=== PATIENT | female | born 1960 | race Caucasian/White ===

== ENCOUNTER 2018-12-06 06:07 | Observation (INO) ==
[2018-12-06] MEDS ORDERED: Pantoprazole 40 MG VIAL IVP ONE (06:24)
[2018-12-06] MEDS ORDERED: Ondansetron 4 MG/2 ML VIAL IVP ONE (06:24)
[2018-12-06] MEDS ORDERED: 0.9 % Sodium Chloride 500 ML IVC ONE (06:24)
[2018-12-06] MEDS ORDERED: Aspirin 81 MG TAB.CHEW PO ONE (06:24)
[2018-12-06] MEDS ORDERED: GI Cocktail 40 ML EACH PO ONE ×2 (06:24→11:22)
[2018-12-06 06:40] LABS: Basophils # 0.1 K/mcL (0.0-0.2); Eosinophils # 0.3 K/mcL (0.0-0.6); Eosinophils % 4.5 %; Hemoglobin 13.3 g/dL (11.5-15.4); Immature Granulocytes % 0.1 % (0-4); Lymphocytes # 1.6 K/mcL (0.6-4.6); Lymphocytes % 23.2 %; Mean Corpuscular HGB Conc 32.4 g/dL (31.6-35.5); Mean Corpuscular Hemoglobin 29.7 pg (28.0-33.3); Mean Corpuscular Volume 91.5 fL (83.0-100.0); Mean Platelet Volume 9.5 fL (9.4-12.4); Monocytes # 0.5 K/mcL (0.0-1.3); Monocytes % 7.9 %; Neutrophils # 4.3 K/mcL (1.6-8.9); Platelet Count 353 K/mcL (140-400); Red Blood Count 4.48 M/mcL (3.82-4.97); Red Cell Distribution Width 13.8 % (11.5-14.5); Segmented Neutrophils % 63.3 %
[2018-12-06 06:48] LABS: Prothrombin Time 10.7 Seconds (9.4-12.1)
--- NOTE | 2018-12-06 06:48 | Emergency Department Note ---
Disposition Clinical Impression: Chest pain Disposition: Admitted As Inpatient Condition: Good General Adult HPI - General Chief complaint: ED Chest Pain Stated complaint: Chest Pain Time Seen by Provider: 12/06/18 06:23 Source: patient, family Limitations: no limitations - History of Present Illness Pain Scale: 10 - Related Data Home Medications Medication Instructions Recorded Confirmed Citalopram [CeleXA] 40 mg PO QAM 04/29/15 04/21/16 LORazepam [Ativan] 1 mg PO TID 04/29/15 04/21/16 Metoprolol [Lopressor] 12.5 mg PO BID 04/29/15 12/06/18 Simvastatin [Zocor] 40 mg PO HS 04/29/15 12/06/18 Lisinopril/Hydrochlorothiazide 1 each PO DAILY 06/27/15 04/21/16 [Zestoretic 10-12.5 mg Tablet] Ranitidine HCl [Zantac] 150 mg PO BID PRN 06/27/15 12/06/18 Citalopram [CeleXA] 20 mg PO HS 04/21/16 04/21/16 Ergocalciferol (VITAMIN D2) 50,000 unit PO QWEEK 04/21/16 04/21/16 [Vitamin D2 (50,000 UNIT)] Allergies Allergy/AdvReac Type Severity Reaction Status Date / Time dicyclomine AdvReac Severe Vomiting Verified 12/06/18 06:13 Past Medical History - Past Medical History Medical history: Reports: GERD, hypertension, renal disease, other Surgical history: Reports: cholecystectomy, orthopedic, other, other Psychiatric history: Reports: anxiety - Social History Smoking Status: Never smoker Smokeless Tobacco Status: No Alcohol use: Reports: none Drug use: Reports: none Physical Exam - General Limitations: no limitations General appearance: alert Course Vital Signs Temperature 98.5 F 12/06/18 06:13 Pulse Rate 79 12/06/18 06:13 Respiratory Rate 20 12/06/18 06:13 Blood Pressure 145/80 12/06/18 06:13 O2 Sat by Pulse Oximetry 97 12/06/18 06:13 Temperature 98.2 F 12/06/18 10:42 Pulse Rate 59 12/06/18 10:42 Respiratory Rate 16 12/06/18 10:42 Blood Pressure 115/75 12/06/18 10:42 O2 Sat by Pulse Oximetry 94 12/06/18 10:42 Oxygen Delivery Oxygen Delivery Room Air Medical Decision Making - Lab Data Result diagrams: 12/06/18 06:22 12/06/18 06:22 Lab Results 12/06/18 12/06/18 12/06/18 Range/Units 06:22 06:22 06:22 WBC 6.9 (4.3-11.1) K/mcL RBC 4.48 (3.82-4.97) M/mcL Hgb 13.3 (11.5-15.4) g/dL Hct 41.0 (35.3-44.9) % MCV 91.5 (83.0-100.0) fL MCH 29.7 (28.0-33.3) pg MCHC 32.4 (31.6-35.5) g/dL RDW 13.8 (11.5-14.5) % Plt Count 353 (140-400) K/mcL MPV 9.5 (9.4-12.4) fL Immature Gran % 0.1 (0-4) % Seg Neutrophils % 63.3 % Lymphocytes % 23.2 % Monocytes % 7.9 % Eosinophils % 4.5 % Basophils % 1.0 % Neutrophils # 4.3 (1.6-8.9) K/mcL Lymphocytes # 1.6 (0.6-4.6) K/mcL Monocytes # 0.5 (0.0-1.3) K/mcL Eosinophils # 0.3 (0.0-0.6) K/mcL Basophils # 0.1 (0.0-0.2) K/mcL PT 10.7 (9.4-12.1) Seconds INR 1.0 APTT 29.7 (26.0-36.0) Seconds Sodium 141 (136-145) mEq/L Potassium 3.9 (3.5-5.1) mEq/L Chloride 107 (98-107) mEq/L Carbon Dioxide 23 (23-29) mEq/L BUN 13 (6-20) mg/dL Creatinine 1.10 (0.60-1.20) mg/dL Est GFR ( Amer) > 60 (> 60) Est GFR (Non-Af Amer) 51 L (> 60) BUN/Creatinine Ratio 12 (6-26) Glucose 104 (70-105) mg/dL Calculated Osmolality 292 (280-300) Calcium 9.6 (8.6-10.3) mg/dL Total Bilirubin 1.1 H (0.3-1.0) mg/dL Direct Bilirubin 0.1 (0.0-0.2) mg/dL Indirect Bilirubin 1.0 (0.0-1.2) mg/dL AST 19 (13-39) Units/L ALT 16 (7-52) Units/L Alkaline Phosphatase 78 (34-104) Units/L Troponin I < 0.03 (< 0.04) ng/mL Serum Total Protein 7.4 (6.4-8.9) g/dL Albumin 4.4 (3.5-5.7) g/dL Globulin 3.0 (2.4-3.5) g/dL Albumin/Globulin Ratio 1.5 (1.1-2.2) Lipase 22 (11-82) Units/L Attestation Statement - Attestation Attestation: For this encounter, I have reviewed the DRUG PURCHASER or PA documentation, treatment plan, and medical decision making; and I have had face to face time with this patient.
[2018-12-06] MEDS ORDERED: Nitroglycerin 0.4 MG TAB.SUBL SL PRN (06:49)
[2018-12-06 06:51] LABS: Activated Partial Thrombo Time 29.7 Seconds (26.0-36.0)
[2018-12-06 07:05] LABS: Alanine Aminotransferase 16 Units/L (7-52); Albumin 4.4 g/dL (3.5-5.7); Albumin/Globulin Ratio 1.5 (1.1-2.2); Alkaline Phosphatase 78 Units/L (34-104); Aspartate Amino Transferase 19 Units/L (13-39); BUN/Creatinine Ratio 12 (6-26); Bilirubin,Direct 0.1 mg/dL (0.0-0.2); Bilirubin,Total 1.1 mg/dL (0.3-1.0); Blood Urea Nitrogen 13 mg/dL (6-20); Calcium 9.6 mg/dL (8.6-10.3); Carbon Dioxide 23 mEq/L (23-29); Chloride 107 mEq/L (98-107); Glucose 104 mg/dL (70-105); Lipase 22 Units/L (11-82); Osmolality,Calculated 292 (280-300); Potassium 3.9 mEq/L (3.5-5.1); Sodium 141 mEq/L (136-145); Total Protein 7.4 g/dL (6.4-8.9); Troponin I < 0.03 ng/mL (< 0.04); eGFR For Non-African Americans 51 (> 60)
--- NOTE | 2018-12-06 07:22 | Emergency Department Note ---
Disposition Clinical Impression: Chest pain Qualifiers: Chest pain type: precordial pain Qualified Code(s): R07.2 - Precordial pain Disposition: Admitted As Inpatient Condition: Good Forms: ED Satisfaction Letter Chest Pain HPI - General Chief Complaint: ED Chest Pain Stated Complaint: Chest Pain Time Seen by Provider: 12/06/18 06:23 Source: patient, family Mode of arrival: private vehicle Limitations: no limitations Vital Signs Reviewed: Yes Nursing Notes Reviewed: Yes - History of Present Illness Pt complaint: chest pain Onset (ago): hour(s) Duration: constant Onset: during rest Pain Location: substernal Severity: severe Severity scale (1-10): 10 Quality: other (burning) Pain Radiation: jaw/teeth Improves with: nothing Worsens with: nothing Context: other (Hx of similar 2 weeks ago. Saw PCP and was told to go to ER if symptoms returned. ) Associated symptoms: Denies: nausea, vomiting, diaphoresis, dyspnea, sense of impending doom, syncope, palpitations, fever, cough, leg swelling Treatments prior to arrival chest pain: other (Zantac 150mg) - Related Data On Oral Contraceptives: No Home Medications Medication Instructions Recorded Confirmed Citalopram [CeleXA] 40 mg PO QAM 04/29/15 04/21/16 LORazepam [Ativan] 1 mg PO TID 04/29/15 04/21/16 Metoprolol [Lopressor] 12.5 mg PO BID 04/29/15 04/21/16 Simvastatin [Zocor] 40 mg PO HS 04/29/15 04/21/16 Lisinopril/Hydrochlorothiazide 1 each PO DAILY 06/27/15 04/21/16 [Zestoretic 10-12.5 mg Tablet] Ranitidine HCl [Zantac] 150 mg PO BID PRN 06/27/15 04/21/16 Citalopram [CeleXA] 20 mg PO HS 04/21/16 04/21/16 Ergocalciferol (VITAMIN D2) 50,000 unit PO QWEEK 04/21/16 04/21/16 [Vitamin D2 (50,000 UNIT)] Allergies Allergy/AdvReac Type Severity Reaction Status Date / Time dicyclomine AdvReac Severe Vomiting Verified 12/06/18 06:13 All systems ED: reviewed and negative except as stated. Review of Systems: As Per HPI Constitutional: Denies: fever, chills, weakness, weight change, night sweats Eyes: Denies: eye pain, eye discharge, vision change ENT ED: Denies: ear pain, throat pain, congestion, dysphagia Cardiovascular: Reports: chest pain. Denies: palpitations, dyspnea on exertion, orthopnea, edema, syncope Respiratory: Denies: cough, dyspnea, wheezes, hemoptysis, stridor, sputum production Gastrointestinal: Denies: abdominal pain, nausea, vomiting, diarrhea, constipation Genitourinary: Denies: dysuria Musculoskeletal: Denies: back pain, neck pain, joint swelling, arthralgia Integumentary: Denies: rash Neurological: Denies: headache, weakness Endocrine: Denies: fatigue Hematological/Lymphatic: Denies: easy bleeding, easy bruising Chest Pain PMH - Past Medical History Medical history: Reports: GERD, hypertension, renal disease, other Surgical history: Reports: cholecystectomy, orthopedic, other, other Psychiatric history: Reports: anxiety Prior Cardiac Testing/Procedures: Cardiac Angiogram (4 years ago - 20% occlusion of 3 vessels) - Social History Smoking Status: Never smoker Alcohol use: Reports: none Drug use: Reports: none Physical Exam - General Limitations: no limitations General appearance: alert, in no apparent distress - Head Head exam: atraumatic, normocephalic, normal inspection - Eye Eye exam: Present: normal appearance, PERRL. Absent: scleral icterus, conjunctival injection, periorbital swelling - ENT ENT exam: mucous membranes moist - Neck Neck exam: Present: normal inspection, full ROM, trachea midline. Absent: tenderness, meningismus, lymphadenopathy - Chest Chest inspection: Present: normal inspection. Absent: tenderness - Respiratory Respiratory exam: Present: normal lung sounds bilaterally. Absent: respiratory distress, wheezes, stridor - Cardiovascular Cardiovascular exam: Present: regular rate, normal rhythm, normal heart sounds - Abdominal Exam Abdominal exam: Present: soft. Absent: tenderness, distention, guarding, rebound, mass, pulsatile mass - Extremities Exam Extremities exam: Present: normal inspection, full ROM, normal capillary refill. Absent: pedal edema, joint swelling, calf tenderness - Expanded Lower Extremity Exam Gait: observed and normal - Back Exam Back exam: Present: normal inspection - Neurological Exam Neurological exam: Present: alert, oriented X3, CN II-XII intact, normal gait - Psychiatric Psychiatric exam: Present: normal affect, anxious - Skin Skin exam: Present: warm, dry, intact, normal color Course Course Narrative: Patient to ED with for evaluation of epigastric chest pain that radiates into the neck and jaw. It began at 5 AM right after she woke up. Nothing makes it better or worse. She had similar pain two weeks ago and saw her PCP for it. He was concerned that it may be heart related and told her that if it happened again, she should come to the ER. She denies dizziness, vertigo, syncope, shortness of breath or dyspnea on exertion, cough or hemoptysis, fever, chills, nausea, vomiting or diaphoresis. On exam she appears anxious and uncomfortable but nontoxic. She is able to speak in complete sentences is polite and conversant. She is able to laugh at my jokes. She becomes tearful when she talks about her family history of coronary artery disease; specifically her father had a CABG in his 50s. She notes that she also has a history of hiatal hernia which was repaired about a decade ago however she was recently told that it has returned. She took two Zantac this AM with no relief. EKG, labs, CXR and meds ordered. EKG shows NSR with Right BBB - unchanged compared to previous. CXR normal per Radiologist. Labs essentially unremarkable. Patient had a cath 4 years ago that showed "20% occlusion in several vessels" per patient report. I am unable to find the report at this time. Patient states it was done here by a female and she follows with Dr. Horn. Patient's HEART score is 4. She has HTN, Fam Hx of CAD at young age, and hx of PCI with 20% occlusion. Will admit for R/O. Case discussed with Dr. Burdick. She has had face to face time with the patient and agrees with the assessment and plan. Vital Signs Temperature 98.5 F 12/06/18 06:13 Pulse Rate 79 12/06/18 06:13 Respiratory Rate 20 12/06/18 06:13 Blood Pressure 145/80 12/06/18 06:13 O2 Sat by Pulse Oximetry 97 12/06/18 06:13 Temperature 98.5 F 12/06/18 06:13 Pulse Rate 66 12/06/18 07:24 Respiratory Rate 13 12/06/18 07:24 Blood Pressure 109/73 12/06/18 07:24 O2 Sat by Pulse Oximetry 94 12/06/18 07:24 Oxygen Delivery Oxygen Delivery Room Air Chest Pain - Lab Data Result diagrams: 12/06/18 06:22 12/06/18 06:22 Lab Results 12/06/18 12/06/18 12/06/18 Range/Units 06:22 06:22 06:22 WBC 6.9 (4.3-11.1) K/mcL RBC 4.48 (3.82-4.97) M/mcL Hgb 13.3 (11.5-15.4) g/dL Hct 41.0 (35.3-44.9) % MCV 91.5 (83.0-100.0) fL MCH 29.7 (28.0-33.3) pg MCHC 32.4 (31.6-35.5) g/dL RDW 13.8 (11.5-14.5) % Plt Count 353 (140-400) K/mcL MPV 9.5 (9.4-12.4) fL Immature Gran % 0.1 (0-4) % Seg Neutrophils % 63.3 % Lymphocytes % 23.2 % Monocytes % 7.9 % Eosinophils % 4.5 % Basophils % 1.0 % Neutrophils # 4.3 (1.6-8.9) K/mcL Lymphocytes # 1.6 (0.6-4.6) K/mcL Monocytes # 0.5 (0.0-1.3) K/mcL Eosinophils # 0.3 (0.0-0.6) K/mcL Basophils # 0.1 (0.0-0.2) K/mcL PT 10.7 (9.4-12.1) Seconds INR 1.0 APTT 29.7 (26.0-36.0) Seconds Sodium 141 (136-145) mEq/L Potassium 3.9 (3.5-5.1) mEq/L Chloride 107 (98-107) mEq/L Carbon Dioxide 23 (23-29) mEq/L BUN 13 (6-20) mg/dL Creatinine 1.10 (0.60-1.20) mg/dL Est GFR ( Amer) > 60 (> 60) Est GFR (Non-Af Amer) 51 L (> 60) BUN/Creatinine Ratio 12 (6-26) Glucose 104 (70-105) mg/dL Calculated Osmolality 292 (280-300) Calcium 9.6 (8.6-10.3) mg/dL Total Bilirubin 1.1 H (0.3-1.0) mg/dL Direct Bilirubin 0.1 (0.0-0.2) mg/dL Indirect Bilirubin 1.0 (0.0-1.2) mg/dL AST 19 (13-39) Units/L ALT 16 (7-52) Units/L Alkaline Phosphatase 78 (34-104) Units/L Troponin I < 0.03 (< 0.04) ng/mL Serum Total Protein 7.4 (6.4-8.9) g/dL Albumin 4.4 (3.5-5.7) g/dL Globulin 3.0 (2.4-3.5) g/dL Albumin/Globulin Ratio 1.5 (1.1-2.2) Lipase 22 (11-82) Units/L Heart Score - Score History: Moderately Suspicious EKG: Normal Age: 45-65 Risk Factors: Equal/Greater than 3 risk factor or history of atherosclerotic disease Troponin: Less than normal limit HEART Score Total: 4
--- NOTE | 2018-12-06 07:23 | Emergency Department Note ---
Disposition Clinical Impression: Chest pain Disposition: Admitted As Inpatient Condition: Good General Adult HPI - General Chief complaint: ED Chest Pain Stated complaint: Chest Pain Time Seen by Provider: 12/06/18 06:23 Source: patient, family Limitations: no limitations - History of Present Illness Pain Scale: 10 - Related Data Home Medications Medication Instructions Recorded Confirmed Citalopram [CeleXA] 40 mg PO QAM 04/29/15 04/21/16 LORazepam [Ativan] 1 mg PO TID 04/29/15 04/21/16 Metoprolol [Lopressor] 12.5 mg PO BID 04/29/15 12/06/18 Simvastatin [Zocor] 40 mg PO HS 04/29/15 12/06/18 Lisinopril/Hydrochlorothiazide 1 each PO DAILY 06/27/15 04/21/16 [Zestoretic 10-12.5 mg Tablet] Ranitidine HCl [Zantac] 150 mg PO BID PRN 06/27/15 12/06/18 Citalopram [CeleXA] 20 mg PO HS 04/21/16 04/21/16 Ergocalciferol (VITAMIN D2) 50,000 unit PO QWEEK 04/21/16 04/21/16 [Vitamin D2 (50,000 UNIT)] Allergies Allergy/AdvReac Type Severity Reaction Status Date / Time dicyclomine AdvReac Severe Vomiting Verified 12/06/18 06:13 Past Medical History - Past Medical History Medical history: Reports: GERD, hypertension, renal disease, other Surgical history: Reports: cholecystectomy, orthopedic, other, other Psychiatric history: Reports: anxiety - Social History Smoking Status: Never smoker Smokeless Tobacco Status: No Alcohol use: Reports: none Drug use: Reports: none Physical Exam - General Limitations: no limitations General appearance: alert Course Vital Signs Temperature 98.5 F 12/06/18 06:13 Pulse Rate 79 12/06/18 06:13 Respiratory Rate 20 12/06/18 06:13 Blood Pressure 145/80 12/06/18 06:13 O2 Sat by Pulse Oximetry 97 12/06/18 06:13 Temperature 98.2 F 12/06/18 10:42 Pulse Rate 59 12/06/18 10:42 Respiratory Rate 16 12/06/18 10:42 Blood Pressure 115/75 12/06/18 10:42 O2 Sat by Pulse Oximetry 94 12/06/18 10:42 Oxygen Delivery Oxygen Delivery Room Air Medical Decision Making - Lab Data Result diagrams: 12/06/18 06:22 12/06/18 06:22 Lab Results 12/06/18 12/06/18 12/06/18 Range/Units 06:22 06:22 06:22 WBC 6.9 (4.3-11.1) K/mcL RBC 4.48 (3.82-4.97) M/mcL Hgb 13.3 (11.5-15.4) g/dL Hct 41.0 (35.3-44.9) % MCV 91.5 (83.0-100.0) fL MCH 29.7 (28.0-33.3) pg MCHC 32.4 (31.6-35.5) g/dL RDW 13.8 (11.5-14.5) % Plt Count 353 (140-400) K/mcL MPV 9.5 (9.4-12.4) fL Immature Gran % 0.1 (0-4) % Seg Neutrophils % 63.3 % Lymphocytes % 23.2 % Monocytes % 7.9 % Eosinophils % 4.5 % Basophils % 1.0 % Neutrophils # 4.3 (1.6-8.9) K/mcL Lymphocytes # 1.6 (0.6-4.6) K/mcL Monocytes # 0.5 (0.0-1.3) K/mcL Eosinophils # 0.3 (0.0-0.6) K/mcL Basophils # 0.1 (0.0-0.2) K/mcL PT 10.7 (9.4-12.1) Seconds INR 1.0 APTT 29.7 (26.0-36.0) Seconds Sodium 141 (136-145) mEq/L Potassium 3.9 (3.5-5.1) mEq/L Chloride 107 (98-107) mEq/L Carbon Dioxide 23 (23-29) mEq/L BUN 13 (6-20) mg/dL Creatinine 1.10 (0.60-1.20) mg/dL Est GFR ( Amer) > 60 (> 60) Est GFR (Non-Af Amer) 51 L (> 60) BUN/Creatinine Ratio 12 (6-26) Glucose 104 (70-105) mg/dL Calculated Osmolality 292 (280-300) Calcium 9.6 (8.6-10.3) mg/dL Total Bilirubin 1.1 H (0.3-1.0) mg/dL Direct Bilirubin 0.1 (0.0-0.2) mg/dL Indirect Bilirubin 1.0 (0.0-1.2) mg/dL AST 19 (13-39) Units/L ALT 16 (7-52) Units/L Alkaline Phosphatase 78 (34-104) Units/L Troponin I < 0.03 (< 0.04) ng/mL Serum Total Protein 7.4 (6.4-8.9) g/dL Albumin 4.4 (3.5-5.7) g/dL Globulin 3.0 (2.4-3.5) g/dL Albumin/Globulin Ratio 1.5 (1.1-2.2) Lipase 22 (11-82) Units/L Attestation Statement - Attestation Attestation: For this encounter, I have reviewed the SHIP MATE or PA documentation, treatment plan, and medical decision making; and I have had face to face time with this patient. Patient to the ED with epigastric and lower chest burning radiating to her upper chest and neck. Woke her from sleep. Similar episode on Thursday. She saw her PCP on who is concerned this is her heart. She does have a history of a hiatal hernia. Zantac and Tums have not been helping. She is in no acute distress on examination. Her abdomen is soft and nontender. Plan. Cardiac workup with LFTs and lipase. \ Patient's cardiac workup is unremarkable. She is admitted for further testing. Chest X-Ray 12/06/18 06:24 IMPRESSION: No acute findings. D/ / Eric Syed / Eric Syed Interpreting Provider: Eric Syed
[2018-12-06] MEDS ORDERED: Metoclopramide 10 MG/2 ML VIAL IVP ONE (07:31)
--- NOTE | 2018-12-06 12:28 | Internal Med History&Physical ---
Date of Encounter: 12/06/18 Time of Encounter: 11:00 Internal Medicine - H&P: HPI Chief complaint: Chest pain Admitted From: Home Plans for Post Hospital Care: Home History of present illness: Patient is a 58-year-old female with past medical history significant for hypertension, hyperlipidemia, GERD, mood disorder, who reports a history of coronary arterial disease by left heart catheterization which cannot be found in the records, who presents due to chest pain. Patient reports of developing epigastric pain which radiated up to her neck with bilateral jaw pain and bilateral shoulder pain. Patient states that her symp toms were constant and intensified overnight therefore decided to come to the ER for evaluation. In the ER, patients first set of troponins were negative and chest x-ray showed no acute findings. She will be admitted to the observation unit for ACS rule out. Past Med Surg Social Fam HX - Past Medical History Medical history: GERD, hypertension, renal disease, other Additional medical history: IBS, Anemia, peptic ulcer disease Psychiatric history: anxiety - Past Surgical History Surgical History: cholecystectomy, orthopedic, other, other Additional surgical history: urethral sling - Social History Smoking Status: Never smoker Smokeless Tobacco Status: No Alcohol use: none Drug use: none - Family History Father Living Status: Still Living Hx Family Cardiac Disorders: Yes (CABG, Stoke) Internal Medicine - H&P: Meds Citalopram [CeleXA] 40 mg PO QAM 04/29/15 [History] LORazepam [Ativan] 1 mg PO TID 04/29/15 [History] Metoprolol [Lopressor] 12.5 mg PO BID 04/29/15 [History] Simvastatin [Zocor] 40 mg PO HS 04/29/15 [History] Lisinopril/Hydrochlorothiazide [Zestoretic 10-12.5 mg Tablet] 1 each PO DAILY 06/27/15 [History] Ranitidine HCl [Zantac] 150 mg PO BID PRN 06/27/15 [History] Citalopram [CeleXA] 20 mg PO HS 04/21/16 [History] Ergocalciferol (VITAMIN D2) [Vitamin D2 (50,000 UNIT)] 50,000 unit PO QWEEK 04/21/16 [History] Allergy/AdvReac Type Severity Reaction Status Date / Time dicyclomine AdvReac Severe Vomiting Verified 12/06/18 06:13 All Systems PM: A 10-system review of systems was performed and is negative for pertinent findings except as documented above in the HPI. - Constitutional Vitals: Temp Pulse Resp BP Pulse Ox 98.2 F 59 16 115/75 94 12/06/18 10:42 12/06/18 10:42 12/06/18 10:42 12/06/18 10:42 12/06/18 10:42 Exam: General appearance: Present: A&O X 3, no acute distress - Head Head exam: Present: normocephalic - Eye Eye exam: Present: normal appearance - ENT ENT exam: Present: mucous membranes moist - Respiratory Respiratory exam: Present: CTAB. Absent: accessory muscle use, rales, rhonchi, wheezes - Cardiovascular Cardiovascular exam: Present: RRR, +S1, +S2. Absent: diastolic murmur, gallop, rubs, systolic murmur - GI/Abdominal GI/Abdominal exam: Present: normal bowel sounds, soft, no peritoneal signs. Absent: distended, tenderness - Extremities Exam Extremities exam: Absent: pedal edema - Neurological Exam Neurological exam: Present: alert, oriented X3, no focal deficits. Absent: altered - Psychiatric Psychiatric exam: -normal mood Skin exam: -normal color Internal Med - H&P Results - Labs CBC & Chem 7: 12/06/18 06:22 12/06/18 06:22 Labs: Short CBC 12/06/18 Range/Units 06:22 WBC 6.9 (4.3-11.1) K/mcL Hgb 13.3 (11.5-15.4) g/dL Hct 41.0 (35.3-44.9) % Plt Count 353 (140-400) K/mcL Neutrophils # 4.3 (1.6-8.9) K/mcL BMP 12/06/18 06:22 Sodium 141 Potassium 3.9 Chloride 107 Carbon Dioxide 23 BUN 13 Creatinine 1.10 Glucose 104 Calcium 9.6 Cardiac Enzymes 12/06/18 Range/Units 06:22 Troponin I < 0.03 (< 0.04) ng/mL Liver Function 12/06/18 Range/Units 06:22 Total Bilirubin 1.1 H (0.3-1.0) mg/dL Direct Bilirubin 0.1 (0.0-0.2) mg/dL AST 19 (13-39) Units/L ALT 16 (7-52) Units/L Alkaline Phosphatase 78 (34-104) Units/L Albumin 4.4 (3.5-5.7) g/dL - Impressions ITS Impressions Chest X-Ray 12/06/18 06:24 IMPRESSION: No acute findings. D/ / Eric Syed / Eric Syed Interpreting Provider: Eric Syed - Assessment and Plan (1) Chest pain Current Visit: Yes Status: Acute Assessment and plan: Patient's first set of cardiac biomarkers were negative. Trend serial troponins and monitor on telemetry If troponins negative, nuclear medicine stress tests to be ordered in the morning for ACS rule out Qualifiers: Chest pain type: precordial pain Qualified Code(s): R07.2 - Precordial pain (2) HTN (hypertension) Current Visit: Yes Status: Acute Assessment and plan: Continue home medications Qualifiers: Hypertension type: essential hypertension Qualified Code(s): I10 - Essential (primary) hypertension (3) HLD (hyperlipidemia) Current Visit: Yes Status: Acute Assessment and plan: Continue home medications Qualifiers: Hyperlipidemia type: unspecified Qualified Code(s): E78.5 - Hyperlipidemia, unspecified (4) GERD (gastroesophageal reflux disease) Current Visit: Yes Status: Acute Assessment and plan: Continue home medications Qualifiers: Qualified Code(s): K21.9 - Gastro-esophageal reflux disease without esophagitis (5) Mood disorder Current Visit: Yes Status: Acute Assessment and plan: Continue home medications (6) DVT prophylaxis Current Visit: Yes Status: Acute Assessment and plan: Subcutaneous heparin - Time Spent With Patient Total time spent is greater than 50% in coordination of care (as documented) at patient's floor/unit and/or counseling patient:
[2018-12-06] MEDS ORDERED: Naloxone 0.4 MG/ML INJ IVP PRN (12:31)
--- NOTE | 2018-12-06 16:46 | Electrocardiograph Report ---
[address] [address] Test Date: 2018-12-06 Pat Name: Isi Damon Department: [id number] Room: 2A48 Gender: Sales And Marketing Specialist: : [id number] Requested By: Chiara Quintero Order Number: [id number] Reading MD: Gabriel Horn Measurements Intervals [place] Rate: 76 P: 65 NE: 142 QRS: 8 QRSD: 121 T: 34 QT: 395 QTc: 445 Interpretive Statements Sinus rhythm Right bundle branch block Electronically Signed On 12-06-2018 16:45:12 EDT by Gabriel Horn
[2018-12-06] MEDS ORDERED: *HR* LORazepam 1 MG TABLET PO PRN ×2 (22:33)
[2018-12-06] MEDS: Gabapentin 300 MG CAPSULE PO SCH (23:32)
[2018-12-07 01:49] LABS: Basophils # 0.1 K/mcL (0.0-0.2); Eosinophils # 0.2 K/mcL (0.0-0.6); Eosinophils % 3.7 %; Hematocrit 35.5 % (35.3-44.9); Immature Granulocytes % 0.2 % (0-4); Lymphocytes # 1.8 K/mcL (0.6-4.6); Lymphocytes % 29.8 %; Mean Corpuscular HGB Conc 32.7 g/dL (31.6-35.5); Mean Corpuscular Volume 91.7 fL (83.0-100.0); Mean Platelet Volume 9.6 fL (9.4-12.4); Monocytes # 0.6 K/mcL (0.0-1.3); Monocytes % 9.9 %; Neutrophils # 3.3 K/mcL (1.6-8.9); Platelet Count 255 K/mcL (140-400); Red Blood Count 3.87 M/mcL (3.82-4.97); Red Cell Distribution Width 13.8 % (11.5-14.5); Segmented Neutrophils % 55.4 %
[2018-12-07 01:53] LABS: Hemoglobin 11.6 g/dL (11.5-15.4)
[2018-12-07 02:08] LABS: Calcium 8.7 mg/dL (8.6-10.3); Potassium 4.3 mEq/L (3.5-5.1)
[2018-12-07 07:10] VITALS: BP 111/68
[2018-12-07] MEDS ORDERED: Sucralfate 1 GM TABLET PO SCH (08:00)
[2018-12-07] MEDS ORDERED: Aspirin Enteric Coated 81 MG Tablet PO SCH (09:00)
[2018-12-07] MEDS: Sucralfate 1 GM TABLET PO SCH ×2 (09:16→11:08)
[2018-12-07] MEDS: Gabapentin 300 MG CAPSULE PO SCH (09:59)
[2018-12-07] MEDS ORDERED: Regadenoson 0.4 MG/5 ML SYRINGE IVP ONE (10:12)
--- NOTE | 2018-12-07 16:22 | Discharge Summary ---
- NOTES TO OUTPATIENT PROVIDER Notes to Outpatient Provider: TTE has been done, pending results, please follow- up echo report as outpatient Orders not resulted at time of discharge: Pending orders 12/07/18 09:24 NM cindy perf SPECT multi [NM] Routine Date of Encounter: 12/07/18 Time of Encounter: 16:00 - Discharge Diagnosis (1) Chest pain Priority: Primary Status: Acute Qualifiers: Chest pain type: precordial pain Qualified Code(s): R07.2 - Precordial pain (2) HTN (hypertension) Priority: Secondary Status: Acute Qualifiers: Hypertension type: essential hypertension Qualified Code(s): I10 - Essential (primary) hypertension (3) HLD (hyperlipidemia) Priority: Secondary Status: Acute Qualifiers: Hyperlipidemia type: unspecified Qualified Code(s): E78.5 - Hyperlipidemia, unspecified (4) GERD (gastroesophageal reflux disease) Priority: Secondary Status: Acute Qualifiers: Qualified Code(s): K21.9 - Gastro-esophageal reflux disease without esophagitis (5) Mood disorder Priority: Secondary Status: Acute (6) DVT prophylaxis Priority: Secondary Status: Acute Hospital course: Ms. Damon is a 58 year old female patient of present to ER for left-sided chest pain. Patient said pain is sharp, no radiation, constant, no respond to nitroglycerin. Chest pain subsided and resolved spontaneously. When I saw patient, she is pain-free. Patient was placed on continuous cardiac monitoring. 3 sets of troponin negative. Nuclear stress test has been done, negative for ischemia. Pending echo. Patient is symptomatically free at this point. Will DC patient home and continue follow-up with PCP as outpatient. I saw and examined patient today. Patient is stable. No chest pain, no shortness of breath, no nausea. Vitals are stable. Will DC patient home today. Discharge discussed with: patient - Time Spent with Patient Total time spent providing and/or coordinating discharge services: 40 minutes Time spent: Greater than 30 minutes - Discharge Medications Prescriptions: Continue Vitamin E (Dl,Tocopheryl Acet) [Vitamin E] 400 unit PO DAILY LORazepam [Ativan] 2 mg PO QAM Lisinopril-HCTZ 10-12.5 [Prinzide 10-12.5] 0.5 tab PO BID Gabapentin [Neurontin] 300 mg PO BID Omeprazole [PriLOSEC] 20 mg PO DAILY Metoprolol [Lopressor] 12.5 mg PO BID LORazepam [Ativan] 1 mg PO HS Sucralfate [Carafate] 1 gm PO TIDWM Simvastatin [Zocor] 40 mg PO HS Sertraline [Zoloft] 100 mg PO QAM Aspirin [Lo-Dose Aspirin EC] 81 mg PO QAM Home Medications: Aspirin [Lo-Dose Aspirin EC] 81 mg PO QAM 12/06/18 [History] Gabapentin [Neurontin] 300 mg PO BID 12/06/18 [History] LORazepam [Ativan] 1 mg PO HS 12/06/18 [History] LORazepam [Ativan] 2 mg PO QAM 12/06/18 [History] Lisinopril-HCTZ 10-12.5 [Prinzide 10-12.5] 0.5 tab PO BID 12/06/18 [History] Metoprolol [Lopressor] 12.5 mg PO BID 12/06/18 [History] Omeprazole [PriLOSEC] 20 mg PO DAILY 12/06/18 [History] Sertraline [Zoloft] 100 mg PO QAM 12/06/18 [History] Simvastatin [Zocor] 40 mg PO HS 12/06/18 [History] Sucralfate [Carafate] 1 gm PO TIDWM 12/06/18 [History] Vitamin E (Dl,Tocopheryl Acet) [Vitamin E] 400 unit PO DAILY 12/06/18 [History] Allergies/Adverse Reactions: Allergy/AdvReac Type Severity Reaction Status Date / Time dicyclomine AdvReac Severe Vomiting Verified 12/06/18 06:13 Date of admission: 12/06/18 09:42 Primary care physician: Bird Orona DO Discharging clinician: Miya Hatch Anticipated date of discharge: 12/07/18 - Constitutional Vitals: Temp Pulse Resp BP Pulse Ox 98.0 F 76 22 111/68 93 12/07/18 07:06 12/07/18 07:06 12/07/18 07:06 12/07/18 07:06 12/07/18 07:06 Exam: Pt is AAO x 3, in NAD HEENT: NC/AT, PERRL Neck: Supple, no JVD, no LAD Lungs: CTA b/l, mild to chest wall tenderness on left chest Heart: S1S2, RRR Abd: Soft, nontender, BS present Ext: ROM wnl, no pedal edema Neuro: No focal deficit - Patient Status Disposition: Home, Self-Care Condition: Good - Discharge Instructions Instructions: Chest Pain (DC), Gastroesophageal Reflux Disease (DC), Gastroesophageal Reflux Disease (GEN) Follow Up With: Bird Orona DO [Primary Care Provider] - - Diet and Activity Activity: increase activity as tolerated Diet: low fat, low cholesterol, low salt diet
== END 2018-12-07 17:00 | disposition home or self-care (01) ==
LOC: 2ANU 06:07 → EMEROOARM 06:07 → 2ANU 10:28
PROVIDERS: ADMIT Hospitalist; ATTEND Hospitalist